=== PATIENT | female | born 1995 | race African-American/Black ===

== ENCOUNTER 2016-10-19 18:55 | Emergency (ER) | payer MEDICAID ==
[~2016-10-19] VITALS: Ht 172.7 cm; Wt 153.6 kg
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
[2016-10-19] MEDS ORDERED: SODIUM CHLORIDE FLUSH 3 ML SYR IV PRN (19:50)
[2016-10-19] MEDS ORDERED: SODIUM CHLORIDE FLUSH 10 ML SYR IV PRN (19:50)
[2016-10-19 20:07] LABS: BASOPHILS % (AUTO) 0 % (0-2); EOSINOPHILS # (AUTO) 0.1 10^3uL; EOSINOPHILS % (AUTO) 1 % (0-4); LYMPHOCYTES # (AUTO) 3.5 X10^3; MEAN CORPUSCULAR HGB CONC 33.9 g/dL (31.0-37.0); MEAN CORPUSCULAR VOLUME 88 FL (80-100); MEAN PLATELET VOLUME 11.9 FL (6.0-9.5); MONOCYTES # (AUTO) 0.5 X10^3; MONOCYTES % (AUTO) 5 % (3-11); NEUTROPHILS % (AUTO) 55 % (51-67); PLATELET COUNT 156 10^3uL (150-450); WHITE BLOOD COUNT 9.14 10^3uL (4.0-11.0)
[2016-10-19 20:18] LABS: ALBUMIN 4.3 g/dL (3.4-5.0); CALCULATED IONIZED CALCIUM 3.9 mg/dL (3.8-4.6); MAGNESIUM* 1.8 mg/dL (1.6-2.3); TOTAL PROTEIN 7.7 g/dL (6.4-8.5)
[2016-10-19] MEDS ORDERED: ACETAMINOPHEN 500 MG TAB (TYLENOL) PO ONE (21:25)
[2016-10-19 22:24] VITALS: BP 121/49
[2016-10-19 22:58] LABS: BILIRUBIN,URINE Negative (Negative); CLARITY,URINE Clear; COLOR,URINE Yellow; GLUCOSE, URINE (UA) Negative (Negative); LEUKOCYTE ESTERASE ,URINE Negative (Negative); UROBILINOGEN,URINE 0.2 mg/dL (0.2-1.0)
[2016-10-19 23:03] LABS: HCG,QUALITATIVE URINE Negative (Negative)
--- NOTE | 2016-10-20 08:03 | Diagnostic Imaging Report ---
PROCEDURE: CT head with and without contrast. TECHNIQUE: Multiple contiguous axial images were obtained through the brain before and after the administration of intravenous contrast. INDICATION: Head pressure No priors for comparison. FINDINGS: There is no intracranial hemorrhage, hydrocephalus, edema, mass, mass effect or evidence for elevated intracranial pressures. Following IV contrast, no abnormal parenchymal or meningeal enhancement was revealed. There is no mass or mass effect. There are no abnormal extra-axial collections. The orbits and sinuses where visualized unremarkable. The calvarium unremarkable. IMPRESSION: Unremarkable pre-and post IV contrast enhanced CT head Dictated by: Dictated on workstation # [id number]
== END 2016-10-19 22:22 | disposition home or self-care (01) ==
LOC: ED 18:57
DX: R51 Headache (principal)
CPT/HCPCS: 36415; 70470; 80053; 81003; 81025; 83735; 84439; 84443; 85025; 99283; A9270; Q9967

== ENCOUNTER → 2016-10-19 | Outpatient (CLI) | payer MEDICAID ==
[~2016-10-19] MED LIST: FERR325T36 PO; HYDR-2651 PO; IBP800T PO; IBUP-793 PO; LEVO50CA2 PO; NITR100C3 PO; NORG1TAB7 PO; OXYC1TAB87 PO; PNV91TAB3 PO; PREN-93 PO; PREN1TAB39 PO
== END ==
LOC: EMS 02:59
DX: Z53.20 Procedure and treatment not carried out because of patient's decision for unspecified reasons (principal)

== ENCOUNTER 2017-01-16 14:40 | Emergency (ER) | payer MEDICAID ==
[~2017-01-16] VITALS: Ht 172.7 cm; Wt 149.7 kg
[2017-01-16 16:56] VITALS: BP 146/89
== END 2017-01-16 16:50 | disposition home or self-care (01) ==
LOC: ED 14:43
DX: O92.6 Galactorrhea (principal)
CPT/HCPCS: 81025; 99282

== ENCOUNTER 2017-01-21 18:41 | Emergency (ER) | payer MEDICAID ==
[~2017-01-21] VITALS: Ht 172.7 cm; Wt 132.0 kg
[~2017-01-21 18:41] MED LIST changes: -LORA-404 PO
--- NOTE | 2017-01-21 18:45 | NUR ---
Pt presents to ER via EMS with c/o right flank pain, onset 5:30 pm this evening. Reports nausea. Received Zofran by EMS. Pt reports standing up and nearly passing out before calling EMS. Rates pain 6/10. No reports difficulty urinating. LBM this morning.
[2017-01-21] MEDS ORDERED: SODIUM CHLORIDE FLUSH 3 ML SYR IV PRN (19:45)
[2017-01-21] MEDS ORDERED: SODIUM CHLORIDE FLUSH 10 ML SYR IV PRN (19:45)
[2017-01-21 19:46] LABS: BILIRUBIN,URINE Negative (Negative); CLARITY,URINE Cloudy; COLOR,URINE Yellow; GLUCOSE, URINE (UA) Negative (Negative); LEUKOCYTE ESTERASE ,URINE Negative (Negative); PH,URINE 5.5 (5.0 - 8.0); UROBILINOGEN,URINE 0.2 mg/dL (0.2-1.0)
[2017-01-21] MEDS ORDERED: KETOROLAC 30 MG/ML (TORADOL) 1 ML VIAL IV ONE (20:00)
[2017-01-21 20:05] LABS: BASOPHILS % (AUTO) 0 % (0-2); EOSINOPHILS # (AUTO) 0.1 10^3uL; EOSINOPHILS % (AUTO) 1 % (0-4); LYMPHOCYTES # (AUTO) 2.5 X10^3; MEAN CORPUSCULAR HEMOGLOBIN 30.2 PG (26.0-34.0); MEAN CORPUSCULAR HGB CONC 33.8 g/dL (31.0-37.0); MEAN CORPUSCULAR VOLUME 90 FL (80-100); MEAN PLATELET VOLUME 11.6 FL (6.0-9.5); MONOCYTES # (AUTO) 0.4 X10^3; MONOCYTES % (AUTO) 5 % (3-11); NEUTROPHILS # (AUTO) 3.7 X10^3; NEUTROPHILS % (AUTO) 56 % (51-67); PLATELET COUNT 151 10^3uL (150-450); WHITE BLOOD COUNT 6.69 10^3uL (4.0-11.0)
[2017-01-21 20:14] LABS: ALBUMIN 4.2 g/dL (3.4-5.0); ANION GAP 14.9 MEQ/L (3-15); CALCULATED IONIZED CALCIUM 3.8 mg/dL (3.8-4.6); TOTAL PROTEIN 7.4 g/dL (6.4-8.5)
--- NOTE | 2017-01-21 20:48 | NUR ---
IV initiated to RH, 20 G, 1st attempt. IVF and Toradol administered after.
--- NOTE | 2017-01-21 20:48 | Diagnostic Imaging Report ---
INDICATION: Right flank pain CT of the abdomen and pelvis obtained without IV contrast. There are no prior studies for comparison. Visualized portions of the lung bases are clear. There were no pleural fluid collections. There is no free intraperitoneal air. The liver and gallbladder were unremarkable. The spleen, adrenals, and pancreas are normal in appearance. The kidneys bilaterally show no radiopaque calculi or hydronephrosis. There were no stones along the course of the ureters on either side. There is no adenopathy or free fluid. There is no pelvic mass. The appendix appears unremarkable. IMPRESSION: Negative CT of the abdomen and pelvis without contrast. Dictated by: Dictated on workstation # [id number]
[2017-01-21] MEDS ORDERED: ED- LORAZEPAM 0.5 MG (ATIVAN) 6 TABLETS/BTL PO ONE (21:35)
--- NOTE | 2017-01-21 21:36 | NUR ---
Pt denies discomfort at this time.
[2017-01-21] MEDS ORDERED: LORA-404 PO (21:38)
--- NOTE | 2017-01-21 21:51 | NUR ---
Pt dismissed to home with instructions, prepack and prescription. IV site dc'd upon dismissal. Pt stated her understanding. Left ambulatory. No other questions or concerns.
[2017-01-21 22:02] VITALS: BP 123/47
== END 2017-01-21 21:51 | disposition home or self-care (01) ==
LOC: ED 18:43
DX: R10.31 Right lower quadrant pain (principal); M54.5 Low back pain; F41.9 Anxiety disorder, unspecified
CPT/HCPCS: 36415; 74176; 80053; 81003; 81025; 83690; 85025; 96361; 96374; 99283; A9270; J1885; J7030

== ENCOUNTER → 2017-01-21 | Outpatient (CLI) | payer MEDICAID ==
[~2017-01-21] MED LIST changes: +LORA-404 PO
== END ==
LOC: EMS 18:46
PROVIDERS: ATTEND Emergency Medicine
DX: R10.11 Right upper quadrant pain (principal); R55 Syncope and collapse

== ENCOUNTER → 2017-01-26 | Outpatient (CLI) | payer MEDICAID ==
[~2017-01-26] MED LIST changes: +LORA-404 PO
== END ==
LOC: RT 15:06
PROVIDERS: ATTEND Family Medicine
DX: R00.2 Palpitations (principal)
CPT/HCPCS: 93225

== ENCOUNTER 2017-02-21 21:05 | Emergency (ER) | payer MEDICAID ==
[~2017-02-21] VITALS: Ht 172.7 cm; Wt 127.3 kg
[2017-02-21] MEDS ORDERED: LSNP10T PO (21:46)
[2017-02-21] MEDS: lisINopril 10 MG (PRINIVIL) TABLET PO ONE (21:57)
[2017-02-21 22:06] VITALS: BP 144/89
== END 2017-02-21 22:07 | disposition home or self-care (01) ==
LOC: ED 21:05
DX: I10 Essential (primary) hypertension (principal)
CPT/HCPCS: 99282; A9270; 99283

== ENCOUNTER 2017-03-06 00:06 | Emergency (ER) | payer MEDICAID ==
[~2017-03-06] VITALS: Ht 172.7 cm; Wt 149.4 kg
[~2017-03-06 00:06] MED LIST changes: +LSNP10T PO
[2017-03-06] MEDS ORDERED: HYDR50CA3 PO (00:22)
[2017-03-06] MEDS ORDERED: ESCI10TA49 PO (00:22)
[2017-03-06] MEDS ORDERED: LORazepam 0.5 MG (ATIVAN) TABLET PO ONE (01:05)
[2017-03-06 01:26] LABS: BASOPHILS % (AUTO) 0 % (0-2); EOSINOPHILS # (AUTO) 0.1 10^3uL; EOSINOPHILS % (AUTO) 1 % (0-4); LYMPHOCYTES # (AUTO) 2.9 X10^3; MEAN CORPUSCULAR HEMOGLOBIN 29.6 PG (26.0-34.0); MEAN CORPUSCULAR HGB CONC 33.2 g/dL (31.0-37.0); MEAN CORPUSCULAR VOLUME 89 FL (80-100); MEAN PLATELET VOLUME 11.7 FL (6.0-9.5); MONOCYTES # (AUTO) 0.3 X10^3; MONOCYTES % (AUTO) 5 % (3-11); NEUTROPHILS % (AUTO) 55 % (51-67); PLATELET COUNT 162 10^3uL (150-450); WHITE BLOOD COUNT 7.37 10^3uL (4.0-11.0)
[2017-03-06 01:34] LABS: ALBUMIN 4.2 g/dL (3.4-5.0); ALKALINE PHOSPHATASE 58 U/L (38-126); ANION GAP 12.1 MEQ/L (3-15); BUN/CREATININE RATIO 15 (10-20); CALCULATED IONIZED CALCIUM 3.9 mg/dL (3.8-4.6); TOTAL PROTEIN 7.5 g/dL (6.4-8.5)
[2017-03-06] MEDS ORDERED: LORA-404 PO (02:24)
[2017-03-06] MEDS ORDERED: ED- LORAZEPAM 0.5 MG (ATIVAN) 6 TABLETS/BTL PO ONE (02:25)
[2017-03-06 02:39] VITALS: BP 135/76
== END 2017-03-06 02:39 | disposition home or self-care (01) ==
LOC: ED 00:07
DX: F41.1 Generalized anxiety disorder (principal); R11.0 Nausea
CPT/HCPCS: 36415; 80053; 84443; 84484; 84703; 85025; 93005; 99283; A9270; 93010; 99284